=== PATIENT | male | born 1970 | race Caucasian/White ===

== ENCOUNTER 2018-05-09 10:43 | Inpatient (IN) | payer MEDICAID ==
[~2018-05-09] VITALS: Ht 165.1 cm; Wt 91.6 kg
[2018-05-09 10:50] VITALS: BP 148/77
--- NOTE | 2018-05-09 10:56 | NUR ---
48 Y/O MALE PLACED IN BED 4 C/O LEFT FLANK PAIN.
[2018-05-09] MEDS ORDERED: FENTANYL PF 100MCG/2ML AMPUL IV ONE (11:30)
--- NOTE | 2018-05-09 12:45 | NUR ---
CALLED NURSING SUP FOR THIS PATIENT REQUESTED MED SURG BED
[2018-05-09] MEDS ORDERED: FENTANYL PF 100MCG/2ML AMPUL ONE (12:49)
--- NOTE | 2018-05-09 12:49 | NUR ---
ADMIT ROOM 321- [id number] RN ALEXUS
--- NOTE | 2018-05-09 12:56 | NUR ---
H/L 20G PLACED IN RIGHT A/C. PT MEDICATED WITH FENTANYL FOR PAIN RELIEF. PT TO BE ADMITTED. BED ALREADY ASSIGNED.
--- NOTE | 2018-05-09 12:59 | NUR ---
CALLED [facility], [employer] YULIYA WAS PAGED.
[2018-05-09] MEDS ORDERED: IV NS 0.9% 1,000 ML IV PRN (13:09)
--- NOTE | 2018-05-09 13:22 | NUR ---
REPORT GIVEN TO ALEXUS. PREPARING PT FOR TRANSFER TO FLOOR.
[2018-05-09] MEDS ORDERED: MAGNESIUM HYDROXIDE 30 ML UDC PO PRN (13:30)
[2018-05-09] MEDS ORDERED: ONDANSETRON HCL/PF 4 MG/2 ML VIAL IVP PRN (13:30)
[2018-05-09] MEDS ORDERED: MAG HYDROX/AL HYDROX/SIMETH 30 ML UDC PO PRN (13:30)
[2018-05-09] MEDS ORDERED: ZOLPIDEM TARTRATE 5 MG TABLET PO PRN (13:30)
[2018-05-09] MEDS ORDERED: ACETAMINOPHEN 325 MG TABLET PO PRN (13:30)
[2018-05-09] MEDS ORDERED: Z GUARD REMEDY 2 OZ OINT TP PRN (13:30)
[2018-05-09] MEDS ORDERED: HYDROCODONE/APAP 5/325MG 1 EACH TABLET PO PRN (13:30)
[2018-05-09] MEDS ORDERED: MORPHINE SULFATE INJ 2 MG/ML DISP.SYRIN IV PRN (13:30)
[2018-05-09] MEDS ORDERED: HYDROCODONE/APAP 10/325MG 1 EA TABLET PO PRN (13:30)
--- NOTE | 2018-05-09 13:40 | NUR ---
RECEIVED PATIENT IN STABLE CONDITION. IN NO APPARENT DISTRESS. BEDSIDE RAILS ARE UPX2. BED IS LOCKED AND LOWERED. CALL LIGHT IS WITHIN REACH. IV LINE IS INTACT AND PATENT. WILL CONTINUE TO MONITOR PATIENT.
--- NOTE | 2018-05-09 18:35 | NUR ---
PATIENT LEFT AGAINST MEDICAL ADVICE. WILL BE GOING TO [facility] IN [place].
[2018-05-10] MEDS ORDERED: PANTOPRAZOLE 40 MG VIAL IV SCH (09:00)
== END 2018-05-09 18:40 | disposition left against medical advice (07) | DRG 465 ==
LOC: ER 10:44 → MED 12:56
PROVIDERS: ADMIT Registered Nurse; ATTEND Registered Nurse
DX: N13.2 Hydronephrosis with renal and ureteral calculous obstruction (principal); R31.9 Hematuria, unspecified; Z90.49 Acquired absence of other specified parts of digestive tract
CPT/HCPCS: 87081-TC; A4606; G0378; J2270; J3010; J7030; Z7610